=== PATIENT | female | born 1945 | race Hispanic/Latino ===

== ENCOUNTER 2021-08-01 10:45 | Outpatient (CLI) | payer MEDICARE ==
--- NOTE | 2021-08-01 15:16 | Ultrasound Report ---
ULTRASOUND ABDOMEN, LIMITED INDICATION / CLINICAL INFORMATION: FATTY (CHANGE OF) LIVER K76.0. COMPARISON: None available. FINDINGS: PANCREAS: Visualized portion shows no significant abnormality. AORTA: No significant abnormality. IVC: No significant abnormality. LIVER: The liver is normal in size measuring 15.0 cm with mildly echogenic appearance. Normal hepatop edal blood flow within the main portal vein. GALLBLADDER: Cholelithiasis. No evidence of significant wall thickening or pericholecystic fluid. BILE DUCTS: Not visualized. RIGHT KIDNEY: The right kidney measures 9.4 cm. No significant abnormality. FREE FLUID: None. ADDITIONAL FINDINGS: None. IMPRESSION: 1. Technically limited exam. 2. Mildly echogenic appearance of the liver, most commonly seen with steatosis. 3. Cholelithiasis without sonographic evidence of acute cholecystitis. Signer Name: Jonas Rosas MD Signed: 08/01/2021 3:12 PM Workstation Name: [id number]
== END 2021-08-01 10:46 | disposition home or self-care (01) ==
LOC: SPVWC 10:45
PROVIDERS: ATTEND Internal Medicine
DX: K80.20 Calculus of gallbladder without cholecystitis without obstruction (principal); K76.0 Fatty (change of) liver, not elsewhere classified
CPT/HCPCS: 76705